=== PATIENT | female | born 1970 | race African-American/Black ===

== ENCOUNTER 2018-05-21 21:39 | Emergency (ER) | payer SELFPAY ==
[~2018-05-21] VITALS: Ht 167.6 cm; Wt 61.0 kg
[2018-05-21 22:25] VITALS: BP 146/97
== END 2018-05-22 | disposition left against medical advice (07) ==
LOC: ER 21:39
DX: Z53.21 Procedure and treatment not carried out due to patient leaving prior to being seen by health care provider (principal)